=== PATIENT | female | born 1995 | race Caucasian/White ===

== ENCOUNTER 2024-01-24 04:18 | Inpatient (IN) | payer OTHER ==
[2024-01-24] MEDS ORDERED: PROMETHAZINE HCL 25 MG/1 ML VIAL IVPB PRN (05:00)
[2024-01-24] MEDS ORDERED: BUTORPHANOL TARTRATE 1 MG/ML VIAL IVPB PRN (05:00)
[2024-01-24] MEDS: DEXTROSE 5%-LACTATED RINGERS 1,000 ML IV SCH (05:25)
[2024-01-24 05:52] VITALS: BMI 25.1
[2024-01-24 05:54] LABS: BASO % 0.3 % (0-2.0); EOS % 1.2 % (0-4.5); HEMATOCRIT 38.9 % (32.4-45.2); HEMOGLOBIN 12.8 GM/dL (10.7-15.3); LYMPH % 29.6 % (8-40); MCH 29.7 pg (25.7-33.7); MCHC 32.9 g/dl (32.0-36.0); MEAN CELL VOLUME 90.5 fl (80-96); MEAN PLT VOLUME 9.3 fl (7.5-11.1); MONO % 12.2 % (3.8-10.2); NEUT % 56.7 % (42.8-82.8); PLATELET COUNT 198 10^3/uL (134-434); RDW 15.1 % (11.6-15.6); WHITE BLOOD COUNT 7.3 K/mm3 (4.0-10.0)
[2024-01-24 05:57] LABS: INR 0.85 (0.83-1.09); PROTHROMBIN TIME (PATIENT) 9.6 SEC (9.7-13.0)
[2024-01-24 06:00] LABS: ACTIVATED PTT 28.4 SECONDS (25.2-36.5)
[2024-01-24 06:07] LABS: POTASSIUM 4.4 mmol/L (3.5-5.1)
[2024-01-24 06:08] LABS: CALCIUM 9.4 mg/dL (8.5-10.1)
[2024-01-24 06:09] LABS: BLOOD UREA NITROGEN 13.3 mg/dL (7-18)
[2024-01-24 06:12] LABS: CREATININE 0.7 mg/dL (0.55-1.3)
[2024-01-24] MEDS ORDERED: PROMETHAZINE HCL 25 MG/1 ML VIAL ONE (06:50)
[2024-01-24] MEDS ORDERED: BUTORPHANOL TARTRATE 2 MG/ML VIAL ONE (06:50)
[2024-01-24] MEDS ORDERED: FENTANYL/BUPIVACAINE/NS/PF - PCEA - 50 ML DISP.SYRIN EP ONE ×5 (09:04→23:14)
[2024-01-24] MEDS ORDERED: NALOXONE HCL 0.4 MG/ML VIAL IVPUSH PRN (09:48)
[2024-01-24] MEDS ORDERED: OXYTOCIN 30 UNITS in 0.9% NS 30 UNIT/500 ML INFUS.BAG IVPB ONE (10:04)
[2024-01-24] MEDS: OXYTOCIN 30 UNITS in 0.9% NS 30 UNIT/500 ML INFUS.BAG IVPB SCH (10:15)
[2024-01-24] MEDS: FENTANYL/BUPIVACAINE/NS/PF - PCEA - 50 ML DISP.SYRIN EP SCH (10:35)
[2024-01-24] MEDS ORDERED: OXYTOCIN 20 UNITS in 0.9% NS 20 UNIT/1,000 ML INFUS.BAG IV ONE (19:11)
[2024-01-24] MEDS ORDERED: LIDOCAINE HCL 1% PRESERVATIVE FREE - 30ML VIAL ONE (19:11)
[2024-01-25] MEDS ORDERED: FENTANYL/BUPIVACAINE/NS/PF - PCEA - 50 ML DISP.SYRIN EP ONE (02:14)
[2024-01-25] MEDS ORDERED: AMPICILLIN SODIUM 2 GM VIAL ONE (02:24)
[2024-01-25] MEDS: AMPICILLIN - 2 GM in SODIUM CHLORIDE 100 ML IVPB ONE (02:30)
[2024-01-25] MEDS ORDERED: ACETAMINOPHEN 325 MG TABLET (FP) PO PRN (04:40)
[2024-01-25] MEDS ORDERED: WITCH HAZEL 50% (TUCKS) 40 PAD/JAR PAD TP PRN (04:40)
[2024-01-25] MEDS ORDERED: BENZOCAINE 20% 57 GM BOTTLE TP PRN (04:40)
[2024-01-25] MEDS ORDERED: BISACODYL 10 MG SUPP.RECT RC PRN (04:40)
[2024-01-25] MEDS ORDERED: BENZOCAINE 28 GM HEMORRHOIDAL OINTMENT TP PRN (04:40)
[2024-01-25] MEDS: OXYTOCIN 20 UNITS in 0.9% NS 20 UNIT/1,000 ML INFUS.BAG IV SCH (04:41)
[2024-01-25] MEDS: METHYLERGONOVINE MALEATE 0.2 MG/1 ML AMP IM PRN (04:43)
[2024-01-25 05:01] LABS: CORD HCO3 19.3 mmHg (20-29); CORD PCO2 41.6 mmHg (30-78); CORD pH 7.284 (7.14-7.44)
[2024-01-25 05:06] LABS: CORD HCO3 19.2 mmHg (20-29); CORD PCO2 49.1 mmHg (30-78); CORD pH 7.209 (7.14-7.44)
[2024-01-25] MEDS ORDERED: oxyCODONE HCL 5 MG TABLET ONE (05:35)
[2024-01-25] MEDS: oxyCODONE HCL 5 MG TABLET PO PRN (05:35)
[2024-01-25] MEDS: AMPICILLIN - 1 GM in SODIUM CHLORIDE 100 ML IVPB SCH (06:31)
[2024-01-26 07:05] LABS: BASO % 0.1 % (0-2.0); EOS % 0.5 % (0-4.5); HEMATOCRIT 38.5 % (32.4-45.2); HEMOGLOBIN 12.6 GM/dL (10.7-15.3); LYMPH % 11.6 % (8-40); MCH 29.8 pg (25.7-33.7); MCHC 32.7 g/dl (32.0-36.0); MEAN CELL VOLUME 91.2 fl (80-96); MONO % 8.1 % (3.8-10.2); NEUT % 79.7 % (42.8-82.8); PLATELET COUNT 179 10^3/uL (134-434); RBC 4.22 M/mm3 (3.60-5.2); RDW 15.2 % (11.6-15.6); WHITE BLOOD COUNT 20.7 K/mm3 (4.0-10.0)
[2024-01-26 09:15] LABS: ANISOCYTOSIS 1+; MACROCYTOSIS 0
[2024-01-26 10:05] VITALS: RESP 18
[2024-01-26] MEDS ORDERED: SENNOSIDES/DOCUSATE COMBO (SENNA PLUS) TABLET (UD) PO PRN (22:00)
[2024-01-26] MEDS: IBUPROFEN 600 MG TABLET (FP) PO PRN (23:17)
[2024-01-27 08:58] VITALS: BP 95/68; PULSE 91; TEMP 98.5
[2024-01-29 09:34] LABS: POC NITRAZINE POS
== END 2024-01-27 13:30 | disposition home or self-care (01) | DRG 560 ==
LOC: JLDR 04:18 → UNDODISIN 18:50 → J3W 01-25 08:05
PROVIDERS: ADMIT Obstetrics & Gynecology; ATTEND Obstetrics & Gynecology
PROC: 10E0XZZ Delivery of Products of Conception, External Approach (ICD-10-PCS; principal; 2024-01-25)
DX: O42.12 Full-term premature rupture of membranes, onset of labor more than 24 hours following rupture (principal); Z3A.40 40 weeks gestation of pregnancy; Z37.0 Single live birth; O69.81X0 Labor and delivery complicated by cord around neck, without compression, not applicable or unspecified
CPT/HCPCS: 36415; 36600; 80048; 82803; 83986-QW; 85025; 85610; 85730; 86780; 86850; 86900; 86901; 88307-TC